=== PATIENT | female | born 1980 ===

== ENCOUNTER 2018-04-11 11:32 | Emergency (ER) | payer OTHER ==
[2018-04-11 11:54] VITALS: RESP 18; TEMP 98.2
[2018-04-11 11:58] VITALS: BMI 29.2
--- NOTE | 2018-04-11 12:25 | ED PDOC ---
Arrival/HPI - General Chief Complaint: Finger,Hand,&Wrist Time Seen by Provider: 04/11/18 12:09 Historian: Patient - History of Present Illness Narrative History of Present Illness (Text): 04/11/18 12:19 A 38 year old female, with no significant past medical history, presents to the emergency department complaining of right hand 2nd digit pain for the past 9 months since 07/2017. Patient states 1 morning in 07/2017, discovered a small lump on 2nd digit along volar aspect. Pt states it has been gradually increasing in size. She claims pain and occasional swelling only occurs in the morning. Patient denies any limited ROM, trauma/injury to finger, numbness/ tingling, or any other complaints at this time. No PMD Time/Duration: Other (9 months since 07/2017) Symptom Onset: Sudden Symptom Course: Unchanged Quality: Aching Severity Level: 1 Past Medical History - Provider Review Nursing Documentation Reviewed: Yes - Travel History Have you recently traveled outside [place] w/in the past 3 mons?: No - Tetanus Immunization Tetanus Immunization: Unknown - Psychiatric Hx Substance Use: No - Surgical History Hx Tubal Ligation: Yes - Anesthesia Hx Anesthesia: Yes Hx Anesthesia Reactions: No Hx Malignant Hyperthermia: No Family/Social History - Physician Review Nursing Documentation Reviewed: Yes Family/Social History: No Known Family HX Smoking Status: Never Smoked Hx Alcohol Use: No Hx Substance Use: No Allergies/Home Meds Allergies/Adverse Reactions: Allergies No Known Allergies Allergy (Verified 04/11/18 11:57) Home Medications: Home Meds Medication Instructions Recorded Confirmed No Known Home Med 04/11/18 04/11/18 Review of Systems - Physician Review All systems were reviewed & negative as marked: Yes - Review of Systems Constitutional: absent: Fatigue, Fevers, Other (no trauma/injury to finger) Respiratory: absent: SOB, Cough Cardiovascular: absent: Chest Pain, Palpitations Gastrointestinal: absent: Abdominal Pain, Nausea, Vomiting Musculoskeletal: Arthralgias, Other (right hand 2nd digit painful bump along volar aspect.). absent: Back Pain, Neck Pain Skin: absent: Rash, Pruritis Neurological: absent: Headache, Dizziness, Other (no numbness/tingling) Psychiatric: absent: Anxiety, Depression Physical Exam Vital Signs Reviewed: Yes Vital Signs Temp Pulse Resp BP Pulse Ox 04/11/18 11:54 98.2 F 75 18 121/59 L 99 Temperature: Afebrile Blood Pressure: Normal Pulse: Regular Respiratory Rate: Normal Appearance: Positive for: Well-Appearing Pain Distress: None Mental Status: Positive for: Alert and Oriented X 3 - Systems Exam Head: Present: Atraumatic Mouth: Present: Moist Mucous Membranes Respiratory/Chest: Present: Clear to Auscultation, Good Air Exchange. No: Respiratory Distress, Accessory Muscle Use Cardiovascular: Present: Regular Rate and Rhythm, Normal S1, S2. No: Murmurs Upper Extremity: Present: Normal ROM (full ROM to right hand 2nd digit), Tenderness (pea-sized tender nodule to the right hand 2nd digit along the volar aspect at the base of the proximal phalanx.), Capillary Refill < 2s. No: Edema , Erythema, Deformity Lower Extremity: Present: Normal Inspection. No: Edema Neurological: Present: GCS=15, Speech Normal, Motor Func Grossly Intact, Normal Sensory Function Skin: Present: Warm, Dry, Normal Color. No: Rashes Psychiatric: Present: Alert, Oriented x 3, Normal Insight, Normal Concentration Medical Decision Making ED Course and Treatment: 04/11/18 12:21 Impression: 38 year old female with right hand 2nd digit painful bump. Physical exam shows pea-sized tender nodule to the right hand 2nd digit along the volar aspect at the base of the proximal phalanx, no erythema, no edema, no ecchymosis , full ROM to finger; no other acute findings on examination. Plan: -- Right Hand 2nd Digit X-Ray -- Reassess and disposition Progress Notes: xray 2nd finger; no fracture pt refused medications for pain. i discussed xray results with patient; advised f/u with hand specialist regarding ganglion cyst. Patient verbalizes understanding of discharge instructions and need for immediate followup. all aspects of this case were discussed the attending of record. on a side note, the patient is requesting information for a surgeon to f/u as she was seeing a surgeon in [place] for hernia; pt states she isnt have any pain now but wants to have someone to follow up with. Impression: Ganglion cyst Motrin every 6 hours as needed for pain Follow-up with a hand specialist/orthopedist within the next 2 days Follow up with the primary care physician within the next 2 days. Return if symptoms worsen persist or if new concerning symptoms develop. - RAD Interpretation Radiology Orders: 04/11/18 12:15 HAND RIGHT 2ND DIGIT (FINGER) [RAD] Stat - Scribe Statement The provider has reviewed the documentation as recorded by the Biggibe Germania Dawson Provider Scribe Attestation: All medical record entries made by the Scribe were at my direction and personally dictated by me. I have reviewed the chart and agree that the record accurately reflects my personal performance of the history, physical exam, medical decision making, and the department course for this patient. I have also personally directed, reviewed, and agree with the discharge instructions and disposition. Disposition/Present on Arrival - Present on Arrival Any Indicators Present on Arrival: No History of DVT/PE: No History of Uncontrolled Diabetes: No Urinary Catheter: No History of Decub. Ulcer: No History Surgical Site Infection Following: None - Disposition Have Diagnosis and Disposition been Completed?: Yes Diagnosis: Ganglion cyst Disposition: HOME/ ROUTINE Disposition Time: 13:08 Patient Plan: Discharge Condition: GOOD Discharge Instructions (ExitCare): Ganglion Cyst (DC) Additional Instructions: Motrin every 6 hours as needed for pain Follow-up with a hand specialist/orthopedist within the next 2 days Follow up with the primary care physician within the next 2 days. Return if symptoms worsen persist or if new concerning symptoms develop. Referrals: Rosa M Jaimes MD [Staff Provider] - Follow up with primary Kane Kiran MD [Staff Provider] - Follow up with primary Mitchel Matthews MD [Staff Provider] - Follow up with primary [facility] [Outside] - Follow up with primary [facility] [Outside] - Follow up with primary Roxana Devine MD [Medical Doctor] - Follow up with primary Forms: [facility] ([place])
[2018-04-11 13:22] VITALS: BP 120/61; PULSE 74; O2SAT 100
--- NOTE | 2018-04-11 13:39 | RAD ---
PROCEDURE: Right Hand Radiographs. HISTORY: pain to volar finger over proximal phalanx COMPARISON: None. FINDINGS: BONES: Normal. No fracture. JOINTS: Normal. No osteoarthritic changes. SOFT TISSUES: Normal. OTHER FINDINGS: None. IMPRESSION: Normal right hand radiographs.
== END 2018-04-11 13:35 | disposition home or self-care (01) ==
LOC: ED 11:32
DX: M67.48 Ganglion, other site (principal)